=== PATIENT | female | born 1975 | race Caucasian/White ===

== ENCOUNTER → 2019-10-14 | Outpatient (CLI) | payer OTHER ==
[2019-10-14 18:48] LABS: Appearance, Urine Clear (Clear); Bilirubin, Urine Neg (Neg); Blood, Urine 3+ (Neg); Color, Urine Yellow (P-Yellow); Glucose Qualitative, Urine Neg (Neg); Ketones, Urine Neg (Neg); Leukocyte Esterase, Urine Neg (Neg); Nitrite, Urine Neg (Neg); Protein, Urine Neg (Neg); Urobilinogen, Urine NORM (Normal)
[2019-10-14 19:01] LABS: Bacteria Many /hpf; Mucus Light (0-Heavy); Red Blood Cells, Urine 0-2 /hpf (0-2); Squamous Epithelial Cells Mod /hpf (Few)
== END | disposition home or self-care (01) ==
LOC: LAB 17:03 → LAB SHORT 17:03
PROVIDERS: Nurse Practitioner Family
DX: R31.9 Hematuria, unspecified (principal)
CPT/HCPCS: 81001; 87086

== ENCOUNTER → 2020-12-28 | Outpatient (CLI) | payer OTHER ==
[2020-12-28 12:29] LABS: BASOPHILS ABSOLUTE AUTO 0.01 K/mm3 (0.00-0.23); BASOPHILS PERCENT AUTO 0 % (0-2); EOSINOPHILS ABSOLUTE AUTO 0.03 K/mm3 (0.00-0.68); EOSINOPHILS PERCENT AUTO 0 % (0-6); Hematocrit 42.8 % (33.0-51.0); Hemoglobin 14.3 g/dL (11.5-16.0); IMMATURE GRAN ABSOLUTE AUTO 0.04 K/mm3 (0.00-0.10); IMMATURE GRAN PERCENT AUTO 1 % (0-1); LYMPHOCYTES PERCENT AUTO 13 % (21-46); MONOCYTES ABSOLUTE AUTO 0.22 K/mm3 (0.16-1.47); MONOCYTES PERCENT AUTO 3 % (4-13); Mean Corpuscular HGB 31.1 pg (26.0-34.0); Mean Corpuscular HGB Conc 33.4 g/dL (31.5-36.5); Mean Corpuscular Volume 93 fL (80-100); Mean Platelet Volume 9.2 fL (9.1-12.4); NEUTROPHILS ABSOLUTE AUTO 6.21 K/mm3 (1.96-9.15); NEUTROPHILS PERCENT AUTO 83 % (41-73); Platelet Count 275 K/mm3 (150-400); RDW Coefficient Variation 14.3 % (11.7-14.2); RDW Standard Deviation 48.6 fL (35.1-46.3); White Blood Cell Count 7.51 K/mm3 (4.00-11.30)
[2020-12-28 12:39] LABS: Alanine Aminotransfer (ALT/SGP 25 U/L (12-78); Albumin, Blood 3.7 g/dL (3.4-5.0); Albumin/Globulin Ratio 0.8 (0.8-1.8); Alk Phos 59 U/L (40-126); Anion Gap 9 mmol/L (6-16); Aspartate Aminotrans (AST/SGOT 13 U/L (12-37); Bilirubin, Total 0.3 mg/dL (0.1-1.0); Blood Urea Nitrogen 14 mg/dL (8-24); Bun/Creatinine Ratio 14.3 (12.0-20.0); CO2, Blood 28 mmol/L (21-32); Calcium, Blood 10.3 mg/dL (8.5-10.1); Chloride, Blood 102 mmol/L (98-108); Creatinine, Blood 0.98 mg/dL (0.40-1.00); Globulin, Blood 4.6 g/dL (2.2-4.0); Glomerular Filtration Rate >60 (60-); Glucose, Blood 132 mg/dL (70-99); Potassium, Blood 4.5 mmol/L (3.5-5.5); Sodium, Blood 139 mmol/L (136-145); Total Protein, Blood 8.3 g/dL (6.4-8.2)
== END | disposition home or self-care (01) ==
LOC: LAB 12:23 → LAB SHORT 12:23
PROVIDERS: Chiropractor
DX: R04.2 Hemoptysis (principal)
CPT/HCPCS: 80053; 85025; 85379

== ENCOUNTER 2021-07-26 16:58 | Emergency (ER) | payer BC ==
[~2021-07-26] VITALS: Ht 177.8 cm; Wt 144.2 kg
[2021-07-26 18:36] LABS: BASOPHILS ABSOLUTE AUTO 0.03 K/mm3 (0.00-0.23); BASOPHILS PERCENT AUTO 1 % (0-2); EOSINOPHILS ABSOLUTE AUTO 0.13 K/mm3 (0.00-0.68); EOSINOPHILS PERCENT AUTO 2 % (0-6); Hematocrit 51.6 % (33.0-51.0); Hemoglobin 17.2 g/dL (11.5-16.0); IMMATURE GRAN ABSOLUTE AUTO 0.01 K/mm3 (0.00-0.10); IMMATURE GRAN PERCENT AUTO 0 % (0-1); LYMPHOCYTES ABSOLUTE AUTO 1.98 K/mm3 (0.84-5.20); LYMPHOCYTES PERCENT AUTO 34 % (21-46); MONOCYTES ABSOLUTE AUTO 0.36 K/mm3 (0.16-1.47); MONOCYTES PERCENT AUTO 6 % (4-13); Mean Corpuscular HGB Conc 33.3 g/dL (31.5-36.5); Mean Corpuscular Volume 90 fL (80-100); Mean Platelet Volume 9.1 fL (9.1-12.4); NEUTROPHILS ABSOLUTE AUTO 3.32 K/mm3 (1.96-9.15); NEUTROPHILS PERCENT AUTO 57 % (41-73); Platelet Count 187 K/mm3 (150-400); RDW Coefficient Variation 15.4 % (11.7-14.2); RDW Standard Deviation 49.1 fL (35.1-46.3); Red Blood Cell Count 5.73 M/mm3 (3.80-5.20); White Blood Cell Count 5.83 K/mm3 (4.00-11.30)
[2021-07-26 18:49] LABS: Alanine Aminotransfer (ALT/SGP 108 U/L (12-78); Albumin, Blood 3.7 g/dL (3.4-5.0); Albumin/Globulin Ratio 0.9 (0.8-1.8); Alk Phos 73 U/L (50-136); Anion Gap 2 mmol/L (6-16); Aspartate Aminotrans (AST/SGOT 79 U/L (12-37); Bilirubin, Total 0.7 mg/dL (0.1-1.0); Blood Urea Nitrogen 8 mg/dL (8-24); Bun/Creatinine Ratio 12.3 (12.0-20.0); CO2, Blood 33 mmol/L (21-32); Calcium, Blood 9.5 mg/dL (8.5-10.1); Chloride, Blood 101 mmol/L (98-108); Creatinine, Blood 0.65 mg/dL (0.40-1.00); Globulin, Blood 4.1 g/dL (2.2-4.0); Glomerular Filtration Rate >60 (60-); Glucose, Blood 93 mg/dL (70-99); Potassium, Blood 3.7 mmol/L (3.5-5.5); Sodium, Blood 136 mmol/L (136-145); Total Protein, Blood 7.8 g/dL (6.4-8.2)
[2021-07-26] MEDS ORDERED: Ativan1 MG PO (20:49)
[2021-07-26] MEDS ORDERED: MORPHINE SULFAT15 M1 PO (20:49)
== END 2021-07-26 20:50 | disposition home or self-care (01) ==
LOC: ER 16:58
PROVIDERS: Physician Assistant
DX: R03.0 Elevated blood-pressure reading, without diagnosis of hypertension (principal); Z79.899 Other long term (current) drug therapy; Z79.891 Long term (current) use of opiate analgesic; C64.9 Malignant neoplasm of unspecified kidney, except renal pelvis
CPT/HCPCS: 36415; 80053; 84484; 85025; 93005; 93010; 99283-25

== ENCOUNTER → 2021-09-01 | Outpatient (CLI) | payer BC ==
[~2021-09-01] MED LIST: Ativan1 MG PO; MORPHINE SULFAT15 M1 PO
[2021-09-01 14:44] LABS: BASOPHILS ABSOLUTE AUTO 0.06 K/mm3 (0.00-0.23); BASOPHILS PERCENT AUTO 1 % (0-2); EOSINOPHILS ABSOLUTE AUTO 0.82 K/mm3 (0.00-0.68); EOSINOPHILS PERCENT AUTO 11 % (0-6); Hematocrit 44.4 % (33.0-51.0); Hemoglobin 15.2 g/dL (11.5-16.0); IMMATURE GRAN ABSOLUTE AUTO 0.01 K/mm3 (0.00-0.10); IMMATURE GRAN PERCENT AUTO 0 % (0-1); LYMPHOCYTES ABSOLUTE AUTO 2.32 K/mm3 (0.84-5.20); LYMPHOCYTES PERCENT AUTO 30 % (21-46); MONOCYTES ABSOLUTE AUTO 0.63 K/mm3 (0.16-1.47); MONOCYTES PERCENT AUTO 8 % (4-13); Mean Corpuscular HGB 30.8 pg (26.0-34.0); Mean Corpuscular HGB Conc 34.2 g/dL (31.5-36.5); Mean Corpuscular Volume 90 fL (80-100); Mean Platelet Volume 9.7 fL (9.1-12.4); NEUTROPHILS ABSOLUTE AUTO 3.91 K/mm3 (1.96-9.15); NEUTROPHILS PERCENT AUTO 51 % (41-73); Platelet Count 260 K/mm3 (150-400); RDW Coefficient Variation 17.9 % (11.7-14.2); RDW Standard Deviation 58.5 fL (35.1-46.3); Red Blood Cell Count 4.94 M/mm3 (3.80-5.20); White Blood Cell Count 7.75 K/mm3 (4.00-11.30)
[2021-09-01 15:09] LABS: Albumin, Blood 3.7 g/dL (3.4-5.0); Calcium, Blood 9.7 mg/dL (8.5-10.1); Creatinine, Blood 1.5 mg/dL (0.40-1.00); Globulin, Blood 3.7 g/dL (2.2-4.0); Potassium, Blood 3.2 mmol/L (3.5-5.5); Total Protein, Blood 7.4 g/dL (6.4-8.2)
== END | disposition home or self-care (01) ==
LOC: LAB SHORT 14:00
PROVIDERS: Registered Nurse Oncology
DX: C64.2 Malignant neoplasm of left kidney, except renal pelvis (principal); C78.00 Secondary malignant neoplasm of unspecified lung
CPT/HCPCS: 80053; 85025

== ENCOUNTER → 2021-10-21 | Outpatient (CLI) | payer BC ==
[2021-10-21 17:25] LABS: Bun/Creatinine Ratio 8.3 (12.0-20.0); Calcium, Blood 8.5 mg/dL (8.5-10.1); Creatinine, Blood 0.84 mg/dL (0.40-1.00); Magnesium, Blood 1.5 mg/dL (1.6-2.4); Potassium, Blood 3.9 mmol/L (3.5-5.5)
== END | disposition home or self-care (01) ==
LOC: LAB 17:16 → LAB SHORT 17:16
PROVIDERS: Chiropractor
DX: E87.6 Hypokalemia (principal)
CPT/HCPCS: 80048; 83735

== ENCOUNTER 2022-05-17 15:09 | Emergency (ER) | payer OTHER ==
[~2022-05-17] VITALS: Ht 180.3 cm; Wt 117.9 kg
[2022-05-17] MEDS ORDERED: DIPATR (15:31)
[2022-05-17] MEDS ORDERED: Lisinopril2.5 MG (15:31)
[2022-05-17] MEDS ORDERED: CABOMETYX20 MG (15:32)
[2022-05-17] MEDS ORDERED: FENT200LOZ (15:32)
[2022-05-17] MEDS ORDERED: CARV3.125 (15:33)
[2022-05-17] MEDS ORDERED: SERT25 (15:33)
[2022-05-17] MEDS ORDERED: OLAN2.5 (15:34)
[2022-05-17] MEDS ORDERED: Amlodipine Bes2.5 MG (15:34)
[2022-05-17 15:45] LABS: BASOPHILS ABSOLUTE AUTO 0.04 K/mm3 (0.00-0.23); BASOPHILS PERCENT AUTO 0 % (0-2); EOSINOPHILS ABSOLUTE AUTO 0.28 K/mm3 (0.00-0.68); EOSINOPHILS PERCENT AUTO 3 % (0-6); Hematocrit 47.7 % (33.0-51.0); Hemoglobin 16.1 g/dL (11.5-16.0); IMMATURE GRAN ABSOLUTE AUTO 0.02 K/mm3 (0.00-0.10); IMMATURE GRAN PERCENT AUTO 0 % (0-1); LYMPHOCYTES ABSOLUTE AUTO 1.86 K/mm3 (0.84-5.20); LYMPHOCYTES PERCENT AUTO 19 % (21-46); MONOCYTES ABSOLUTE AUTO 0.53 K/mm3 (0.16-1.47); MONOCYTES PERCENT AUTO 5 % (4-13); Mean Corpuscular HGB Conc 33.8 g/dL (31.5-36.5); Mean Corpuscular Volume 104 fL (80-100); Mean Platelet Volume 10.1 fL (9.1-12.4); NEUTROPHILS ABSOLUTE AUTO 7.09 K/mm3 (1.96-9.15); NEUTROPHILS PERCENT AUTO 72 % (41-73); Platelet Count 282 K/mm3 (150-400); RDW Coefficient Variation 14.8 % (11.7-14.2); RDW Standard Deviation 57.1 fL (35.1-46.3); White Blood Cell Count 9.82 K/mm3 (4.00-11.30)
[2022-05-17 16:08] LABS: Albumin, Blood 3.4 g/dL (3.4-5.0); Albumin/Globulin Ratio 0.8 (0.8-1.8); Bilirubin, Total 0.5 mg/dL (0.1-1.0); Bun/Creatinine Ratio 13.9 (12.0-20.0); Calcium, Blood 8.4 mg/dL (8.5-10.1); Creatinine, Blood 1.44 mg/dL (0.40-1.00); Globulin, Blood 4.2 g/dL (2.2-4.0); Magnesium, Blood 1.3 mg/dL (1.6-2.4); Potassium, Blood 3.3 mmol/L (3.5-5.5); Total Protein, Blood 7.6 g/dL (6.4-8.2)
== END 2022-05-17 17:49 | disposition home or self-care (01) ==
LOC: ER 15:09
PROVIDERS: Physician Assistant
DX: N17.9 Acute kidney failure, unspecified (principal); E86.0 Dehydration; E87.6 Hypokalemia; E83.42 Hypomagnesemia; I95.9 Hypotension, unspecified; F17.200 Nicotine dependence, unspecified, uncomplicated; Z79.899 Other long term (current) drug therapy
CPT/HCPCS: 36415; 71046; 80053; 83735; 84484; 85025; 93005; 93010; 96361; 96365; 99284-25; A9270; J3475; J7030

== ENCOUNTER 2022-08-10 14:15 | Emergency (ER) | payer OTHER ==
[~2022-08-10] VITALS: Ht 177.8 cm; Wt 113.4 kg
[~2022-08-10 14:15] MED LIST changes: +Amlodipine Bes2.5 MG; +CABOMETYX20 MG; +CARV3.125; +DIPATR; +FENT200LOZ; +Lisinopril2.5 MG; +OLAN2.5; +SERT25
[2022-08-10 14:49] VITALS: BP 101/68
[2022-08-10 15:13] LABS: BASOPHILS ABSOLUTE AUTO 0.03 K/mm3 (0.00-0.23); BASOPHILS PERCENT AUTO 0 % (0-2); EOSINOPHILS ABSOLUTE AUTO 0.34 K/mm3 (0.00-0.68); EOSINOPHILS PERCENT AUTO 4 % (0-6); Hematocrit 43.7 % (33.0-51.0); Hemoglobin 14.6 g/dL (11.5-16.0); IMMATURE GRAN ABSOLUTE AUTO 0.01 K/mm3 (0.00-0.10); IMMATURE GRAN PERCENT AUTO 0 % (0-1); LYMPHOCYTES ABSOLUTE AUTO 2.05 K/mm3 (0.84-5.20); LYMPHOCYTES PERCENT AUTO 24 % (21-46); MONOCYTES ABSOLUTE AUTO 0.48 K/mm3 (0.16-1.47); MONOCYTES PERCENT AUTO 6 % (4-13); Mean Corpuscular HGB 34.4 pg (26.0-34.0); Mean Corpuscular HGB Conc 33.4 g/dL (31.5-36.5); Mean Corpuscular Volume 103 fL (80-100); Mean Platelet Volume 9.9 fL (9.1-12.4); NEUTROPHILS ABSOLUTE AUTO 5.64 K/mm3 (1.96-9.15); NEUTROPHILS PERCENT AUTO 66 % (41-73); Platelet Count 189 K/mm3 (150-400); RDW Coefficient Variation 14.8 % (11.7-14.2); RDW Standard Deviation 56.8 fL (35.1-46.3); Red Blood Cell Count 4.24 M/mm3 (3.80-5.20); White Blood Cell Count 8.55 K/mm3 (4.00-11.30)
[2022-08-10 15:32] LABS: Albumin, Blood 3.2 g/dL (3.4-5.0); Albumin/Globulin Ratio 0.8 (0.8-1.8); Bilirubin, Total 0.5 mg/dL (0.1-1.0); Bun/Creatinine Ratio 14.6 (12.0-20.0); Calcium, Blood 7.3 mg/dL (8.5-10.1); Creatinine, Blood 0.82 mg/dL (0.40-1.00); Globulin, Blood 3.8 g/dL (2.2-4.0); Potassium, Blood 3.7 mmol/L (3.5-5.5)
[2022-08-10 18:30] LABS: Source, Urine Clean Catch
[2022-08-10 18:33] LABS: Appearance, Urine Hazy (Clear); Blood, Urine 3+ (Neg); Color, Urine Amber (P-Yellow); Glucose Qualitative, Urine 1+ (Neg); Ketones, Urine 1+ (Neg); Leukocyte Esterase, Urine 2+ (Neg); Nitrite, Urine Pos (Neg); Protein, Urine 4+ (Neg); Urobilinogen, Urine 2+ (Normal)
[2022-08-10 18:52] LABS: Bilirubin, Urine 2+ (Neg)
[2022-08-10 18:55] LABS: Bacteria Many /hpf; Granular Casts 0-2 /lpf (0); Squamous Epithelial Cells Many /hpf (Few)
[2022-08-10] MEDS ORDERED: Macrobid 100 M100 MG PO (19:34)
== END 2022-08-10 19:40 | disposition home or self-care (01) ==
LOC: ER 14:15
PROVIDERS: Physician Assistant
DX: N39.0 Urinary tract infection, site not specified (principal); E86.0 Dehydration; I10 Essential (primary) hypertension; Z79.899 Other long term (current) drug therapy
CPT/HCPCS: 80053; 81001; 85025; 87086; 99284; J7030

== ENCOUNTER 2023-04-16 08:00 | Day surgery (SDC) | payer OTHER ==
[~2023-04-16 08:00] MED LIST changes: +Macrobid 100 M100 MG PO
== END 2023-04-16 23:59 | disposition home or self-care (01) ==
LOC: WOUND 08:00
DX: T81.31XS Disruption of external operation (surgical) wound, not elsewhere classified, sequela (principal); S30.811D Abrasion of abdominal wall, subsequent encounter; I10 Essential (primary) hypertension; F17.290 Nicotine dependence, other tobacco product, uncomplicated; Z92.21 Personal history of antineoplastic chemotherapy; Y83.8 Other surgical procedures as the cause of abnormal reaction of the patient, or of later complication, without mention of misadventure at the time of the procedure; X58.XXXD Exposure to other specified factors, subsequent encounter
CPT/HCPCS: 99406; A9270; G0463

== ENCOUNTER 2023-04-23 03:42 | Day surgery (SDC) | payer OTHER | END 2023-04-23 22:54 | disposition home or self-care (01) | LOC: WOUND 03:42 | DX: S31.104A Unspecified open wound of abdominal wall, left lower quadrant without penetration into peritoneal cavity, initial encounter (principal); S30.811A Abrasion of abdominal wall, initial encounter; X58.XXXA Exposure to other specified factors, initial encounter; T81.31XS Disruption of external operation (surgical) wound, not elsewhere classified, sequela; Y83.8 Other surgical procedures as the cause of abnormal reaction of the patient, or of later complication, without mention of misadventure at the time of the procedure; I10 Essential (primary) hypertension; Z92.21 Personal history of antineoplastic chemotherapy | CPT/HCPCS: A9270 ==

== ENCOUNTER 2023-05-02 03:00 | Day surgery (SDC) | payer OTHER | END 2023-05-02 22:49 | disposition home or self-care (01) | LOC: WOUND 03:00 | DX: T81.31XS Disruption of external operation (surgical) wound, not elsewhere classified, sequela (principal); I10 Essential (primary) hypertension; S30.811D Abrasion of abdominal wall, subsequent encounter; S30.810D Abrasion of lower back and pelvis, subsequent encounter; C64.9 Malignant neoplasm of unspecified kidney, except renal pelvis; Z92.21 Personal history of antineoplastic chemotherapy; Y83.8 Other surgical procedures as the cause of abnormal reaction of the patient, or of later complication, without mention of misadventure at the time of the procedure; X58.XXXD Exposure to other specified factors, subsequent encounter | CPT/HCPCS: 36415; 80053; 84443; 85025; A9270 ==

== ENCOUNTER 2023-05-18 00:38 | Day surgery (SDC) | payer OTHER ==
[2023-05-18] MEDS ORDERED: Lidocaine HCl 4% Cream 5 GM ONE (13:57)
== END 2023-05-18 22:40 | disposition home or self-care (01) ==
LOC: WOUND 00:38
DX: T81.31XS Disruption of external operation (surgical) wound, not elsewhere classified, sequela (principal); S30.811D Abrasion of abdominal wall, subsequent encounter; S30.810D Abrasion of lower back and pelvis, subsequent encounter; I10 Essential (primary) hypertension; C64.9 Malignant neoplasm of unspecified kidney, except renal pelvis; Z92.21 Personal history of antineoplastic chemotherapy; X58.XXXD Exposure to other specified factors, subsequent encounter; Y83.8 Other surgical procedures as the cause of abnormal reaction of the patient, or of later complication, without mention of misadventure at the time of the procedure
CPT/HCPCS: A9270

== ENCOUNTER 2023-05-25 01:45 | Day surgery (SDC) | payer OTHER ==
[2023-05-25] MEDS ORDERED: Lidocaine HCl 4% Cream 5 GM ONE (12:08)
[2023-05-25] MEDS ORDERED: Triamcinolone Acet 0.1% Cream 15 gm ONE (12:32)
== END 2023-05-25 22:52 | disposition home or self-care (01) ==
LOC: WOUND 01:45
DX: T81.31XD Disruption of external operation (surgical) wound, not elsewhere classified, subsequent encounter (principal); I10 Essential (primary) hypertension; Z92.21 Personal history of antineoplastic chemotherapy; S30.811D Abrasion of abdominal wall, subsequent encounter
CPT/HCPCS: A9270; G0463

== ENCOUNTER 2023-06-06 02:52 | Day surgery (SDC) | payer OTHER | END 2023-06-06 22:48 | disposition home or self-care (01) | LOC: WOUND 02:52 | DX: T81.31XD Disruption of external operation (surgical) wound, not elsewhere classified, subsequent encounter (principal); I10 Essential (primary) hypertension; C64.2 Malignant neoplasm of left kidney, except renal pelvis; C79.9 Secondary malignant neoplasm of unspecified site; Z79.899 Other long term (current) drug therapy; Z90.5 Acquired absence of kidney | CPT/HCPCS: G0463 ==

== ENCOUNTER 2023-07-19 02:36 | Day surgery (SDC) | payer MEDICARE, OTHER ==
[2023-07-19] MEDS ORDERED: Triamcinolone Acet 0.1% Cream 15 gm ONE (15:03)
== END 2023-07-19 22:53 | disposition home or self-care (01) ==
LOC: WOUND 02:36
DX: L98.491 Non-pressure chronic ulcer of skin of other sites limited to breakdown of skin (principal); S30.811D Abrasion of abdominal wall, subsequent encounter; T81.31XS Disruption of external operation (surgical) wound, not elsewhere classified, sequela; I10 Essential (primary) hypertension; Z85.528 Personal history of other malignant neoplasm of kidney; Z90.5 Acquired absence of kidney; Z79.899 Other long term (current) drug therapy; Z92.21 Personal history of antineoplastic chemotherapy
CPT/HCPCS: A6213; A9270; G0463

== ENCOUNTER 2023-07-26 02:16 | Day surgery (SDC) | payer MEDICARE, OTHER ==
[2023-07-26] MEDS ORDERED: Lidocaine HCl 4% Cream 5 GM ONE (15:17)
[2023-07-26] MEDS ORDERED: Triamcinolone Acet 0.1% Cream 15 gm ONE (15:17)
== END 2023-07-26 23:15 | disposition home or self-care (01) ==
LOC: WOUND 02:16
DX: T81.31XS Disruption of external operation (surgical) wound, not elsewhere classified, sequela (principal); C79.00 Secondary malignant neoplasm of unspecified kidney and renal pelvis; S30.811D Abrasion of abdominal wall, subsequent encounter; X58.XXXD Exposure to other specified factors, subsequent encounter; L98.491 Non-pressure chronic ulcer of skin of other sites limited to breakdown of skin; I10 Essential (primary) hypertension; Z92.21 Personal history of antineoplastic chemotherapy
CPT/HCPCS: A9270; G0463

== ENCOUNTER 2023-08-09 02:50 | Day surgery (SDC) | payer MEDICARE, OTHER | END 2023-08-09 22:36 | disposition home or self-care (01) | LOC: WOUND 02:50 | DX: L53.9 Erythematous condition, unspecified (principal); T81.31XS Disruption of external operation (surgical) wound, not elsewhere classified, sequela; C64.9 Malignant neoplasm of unspecified kidney, except renal pelvis; I10 Essential (primary) hypertension; L98.491 Non-pressure chronic ulcer of skin of other sites limited to breakdown of skin; S30.811D Abrasion of abdominal wall, subsequent encounter; Y83.8 Other surgical procedures as the cause of abnormal reaction of the patient, or of later complication, without mention of misadventure at the time of the procedure; Z90.5 Acquired absence of kidney; Z92.21 Personal history of antineoplastic chemotherapy | CPT/HCPCS: G0463 ==

== ENCOUNTER 2023-08-30 06:12 | Day surgery (SDC) | payer MEDICARE, OTHER | END 2023-08-30 23:23 | disposition home or self-care (01) | LOC: WOUND 06:12 | DX: T81.31XA Disruption of external operation (surgical) wound, not elsewhere classified, initial encounter (principal); L98.492 Non-pressure chronic ulcer of skin of other sites with fat layer exposed; S30.811D Abrasion of abdominal wall, subsequent encounter; X58.XXXD Exposure to other specified factors, subsequent encounter; I10 Essential (primary) hypertension; Z92.21 Personal history of antineoplastic chemotherapy | CPT/HCPCS: G0463 ==

== ENCOUNTER 2023-10-04 03:36 | Day surgery (SDC) | payer MEDICARE, OTHER | END 2023-10-04 22:43 | disposition home or self-care (01) | LOC: WOUND 03:36 | DX: L98.492 Non-pressure chronic ulcer of skin of other sites with fat layer exposed (principal); T81.31XA Disruption of external operation (surgical) wound, not elsewhere classified, initial encounter; S30.811D Abrasion of abdominal wall, subsequent encounter; X58.XXXD Exposure to other specified factors, subsequent encounter; I10 Essential (primary) hypertension; Z92.21 Personal history of antineoplastic chemotherapy | CPT/HCPCS: G0463 ==

== ENCOUNTER 2023-10-25 02:38 | Day surgery (SDC) | payer MEDICARE, OTHER | END 2023-10-25 22:47 | disposition home or self-care (01) | LOC: WOUND 02:38 | DX: T81.31XD Disruption of external operation (surgical) wound, not elsewhere classified, subsequent encounter (principal); I10 Essential (primary) hypertension; L98.491 Non-pressure chronic ulcer of skin of other sites limited to breakdown of skin; S30.811D Abrasion of abdominal wall, subsequent encounter; Z92.21 Personal history of antineoplastic chemotherapy; X58.XXXD Exposure to other specified factors, subsequent encounter; Y83.8 Other surgical procedures as the cause of abnormal reaction of the patient, or of later complication, without mention of misadventure at the time of the procedure | CPT/HCPCS: G0463 ==

== ENCOUNTER 2023-11-06 02:00 | Day surgery (SDC) | payer MEDICARE, OTHER | END 2023-11-06 23:10 | disposition home or self-care (01) | LOC: WOUND 02:00 | DX: T81.31XD Disruption of external operation (surgical) wound, not elsewhere classified, subsequent encounter (principal); I10 Essential (primary) hypertension; S30.811D Abrasion of abdominal wall, subsequent encounter; Z92.21 Personal history of antineoplastic chemotherapy; Y83.8 Other surgical procedures as the cause of abnormal reaction of the patient, or of later complication, without mention of misadventure at the time of the procedure | CPT/HCPCS: A6213; G0463 ==

== ENCOUNTER 2023-12-14 01:50 | Day surgery (SDC) | payer MEDICARE, OTHER | END 2023-12-14 23:19 | disposition home or self-care (01) | LOC: WOUND 01:50 | DX: T81.31XA Disruption of external operation (surgical) wound, not elsewhere classified, initial encounter (principal); S30.811A Abrasion of abdominal wall, initial encounter; L98.491 Non-pressure chronic ulcer of skin of other sites limited to breakdown of skin; I10 Essential (primary) hypertension; Z92.21 Personal history of antineoplastic chemotherapy; X58.XXXA Exposure to other specified factors, initial encounter | CPT/HCPCS: G0463 ==

== ENCOUNTER 2023-12-28 04:39 | Day surgery (SDC) | payer MEDICARE, OTHER | END 2023-12-29 01:31 | disposition home or self-care (01) | LOC: WOUND 04:39 | DX: L98.491 Non-pressure chronic ulcer of skin of other sites limited to breakdown of skin (principal); I10 Essential (primary) hypertension; S30.811D Abrasion of abdominal wall, subsequent encounter; T81.31XS Disruption of external operation (surgical) wound, not elsewhere classified, sequela; X58.XXXD Exposure to other specified factors, subsequent encounter; Y83.8 Other surgical procedures as the cause of abnormal reaction of the patient, or of later complication, without mention of misadventure at the time of the procedure; Z92.21 Personal history of antineoplastic chemotherapy | CPT/HCPCS: G0463 ==

== ENCOUNTER 2024-01-11 01:18 | Day surgery (SDC) | payer MEDICARE, OTHER | END 2024-01-12 02:51 | disposition home or self-care (01) | LOC: WOUND 01:18 | DX: T81.31XS Disruption of external operation (surgical) wound, not elsewhere classified, sequela (principal); I10 Essential (primary) hypertension; Z85.528 Personal history of other malignant neoplasm of kidney; Z90.5 Acquired absence of kidney | CPT/HCPCS: G0463 ==

== ENCOUNTER 2024-01-19 18:03 | Emergency (ER) | payer MEDICARE, OTHER ==
[~2024-01-19] VITALS: Ht 177.8 cm; Wt 130.2 kg
[2024-01-19 19:11] LABS: BASOPHILS ABSOLUTE AUTO 0.03 K/mm3 (0.00-0.23); BASOPHILS PERCENT AUTO 1 % (0-2); EOSINOPHILS ABSOLUTE AUTO 0.28 K/mm3 (0.00-0.68); EOSINOPHILS PERCENT AUTO 5 % (0-6); Hematocrit 37.7 % (33.0-51.0); Hemoglobin 12.4 g/dL (11.5-16.0); IMMATURE GRAN ABSOLUTE AUTO 0.02 K/mm3 (0.00-0.10); IMMATURE GRAN PERCENT AUTO 0 % (0-1); LYMPHOCYTES ABSOLUTE AUTO 1.56 K/mm3 (0.84-5.20); LYMPHOCYTES PERCENT AUTO 30 % (21-46); MONOCYTES ABSOLUTE AUTO 0.46 K/mm3 (0.16-1.47); MONOCYTES PERCENT AUTO 9 % (4-13); Mean Corpuscular HGB 34.6 pg (26.0-34.0); Mean Corpuscular HGB Conc 32.9 g/dL (31.5-36.5); Mean Corpuscular Volume 105 fL (80-100); Mean Platelet Volume 9.5 fL (9.1-12.4); NEUTROPHILS PERCENT AUTO 55 % (41-73); Platelet Count 193 K/mm3 (150-400); RDW Coefficient Variation 13.4 % (11.7-14.2); Red Blood Cell Count 3.58 M/mm3 (3.80-5.20); White Blood Cell Count 5.25 K/mm3 (4.00-11.30)
[2024-01-19 19:32] LABS: Albumin, Blood 3.3 g/dL (3.4-5.0); Albumin/Globulin Ratio 0.9 (0.8-1.8); Bilirubin, Total 0.5 mg/dL (0.1-1.0); Bun/Creatinine Ratio 13.3 (12.0-20.0); Calcium, Blood 9.3 mg/dL (8.5-10.1); Creatinine, Blood 1.28 mg/dL (0.40-1.00); Globulin, Blood 3.7 g/dL (2.2-4.0); Potassium, Blood 4.5 mmol/L (3.5-5.5)
[2024-01-19] MEDS ORDERED: HYDROmorphone HCl/Pf 1MG SYR IV ONE ×2 (20:40→22:55)
[2024-01-19] MEDS ORDERED: Ondansetron HCl 2 MG / ML 2ML Vial IV ONE (20:40)
[2024-01-19] MEDS ORDERED: Ipratropium Bromide INH 0.02% 0.5 mg/2.5ML Vial INH SCH (20:55)
[2024-01-19] MEDS ORDERED: Albuterol 2.5 MG/3 ML VIAL INH SCH (20:55)
[2024-01-19] MEDS ORDERED: OLANZAPINE5 M1 PO (22:46)
[2024-01-19] MEDS ORDERED: CARVEDILOL12.5 MG PO (22:46)
[2024-01-19] MEDS ORDERED: ZOLOFT10013 PO (22:46)
[2024-01-19] MEDS ORDERED: AMLODIPINE BESY10 MG PO (22:47)
[2024-01-19] MEDS ORDERED: K-Dur10 MEQ (22:47)
[2024-01-19] MEDS ORDERED: CABOMETYX40 MG PO (22:47)
[2024-01-19] MEDS ORDERED: EUTHYROX100 MC1 PO (22:47)
[2024-01-19] MEDS ORDERED: DURAGESIC1 EAC1 TOP (22:47)
[2024-01-19] MEDS ORDERED: LISI20 PO (22:48)
[2024-01-20] MEDS ORDERED: HYDROmorphone HCl/Pf 1MG SYR ONE (00:15)
[2024-01-20] MEDS ORDERED: HYDROmorphone HCl/Pf 1MG SYR IV ONE (00:20)
[2024-01-20] MEDS ORDERED: Cefepime HCl 2,000 MG in NS 100 ML IV ONE (00:35)
[2024-01-20] MEDS ORDERED: VANCOMYCIN HCL IV SCH (00:35)
[2024-01-20] MEDS ORDERED: Vancomycin HCL 2,500 MG in NS 500 ML IV ONE (01:35)
[2024-01-20] MEDS ORDERED: OxyCODONE 10/Acetamin 325 TABLET PO ONE (01:50)
[2024-01-20 04:30] VITALS: BP 122/78
== END 2024-01-20 05:02 | disposition short-term general hospital (02) ==
LOC: ER 18:03
PROVIDERS: Emergency Medicine
DX: L98.499 Non-pressure chronic ulcer of skin of other sites with unspecified severity (principal); L02.211 Cutaneous abscess of abdominal wall; Z79.899 Other long term (current) drug therapy; I10 Essential (primary) hypertension
CPT/HCPCS: 71046; 74177; 80053; 85025; 94644; 94664; 96365; 96366; 96367; 96375; 96376; 99285-25; A9270; J0692; J1170; J1171; J2405; J3370; J7040; Q9967

== ENCOUNTER → 2024-04-28 | Outpatient (CLI) | payer MEDICARE, OTHER ==
[~2024-04-28] MED LIST changes: +AMLODIPINE BESY10 MG PO; +CABOMETYX40 MG PO; +CARVEDILOL12.5 MG PO; +DURAGESIC1 EAC1 TOP; +EUTHYROX100 MC1 PO; +K-Dur10 MEQ; +LISI20 PO; +OLANZAPINE5 M1 PO; +ZOLOFT10013 PO
== END ==
LOC: LAB SHORT 18:57 → LAB 18:57
DX: R39.9 Unspecified symptoms and signs involving the genitourinary system (principal)
CPT/HCPCS: 87077; 87086; 87147; 87186

== ENCOUNTER → 2024-05-27 | Outpatient (CLI) | payer MEDICARE, OTHER ==
[2024-05-27 18:13] LABS: Bacteria Many /hpf; Red Blood Cells, Urine TNTC /hpf (0-2); Squamous Epithelial Cells Mod /hpf (Few); White Blood Cells, Urine TNTC /hpf (0-5)
== END ==
LOC: LAB 16:32 → LAB SHORT 16:32
PROVIDERS: Family Medicine
DX: N39.0 Urinary tract infection, site not specified (principal)
CPT/HCPCS: 81015; 87077; 87086; 87147; 87186

== ENCOUNTER → 2024-06-30 | Outpatient (CLI) | payer MEDICARE, OTHER | LOC: LAB SHORT 14:16 → LAB 14:16 | DX: R53.82 Chronic fatigue, unspecified (principal); Z79.899 Other long term (current) drug therapy | CPT/HCPCS: 82306; 82607; 82746 ==

== ENCOUNTER 2024-08-24 11:00 | Emergency (ER) | payer MEDICARE, OTHER ==
[~2024-08-24] VITALS: Ht 177.8 cm; Wt 136.1 kg
[2024-08-24 11:36] LABS: BASOPHILS ABSOLUTE AUTO 0.02 K/mm3 (0.00-0.23); BASOPHILS PERCENT AUTO 0 % (0-2); EOSINOPHILS ABSOLUTE AUTO 0.01 K/mm3 (0.00-0.68); EOSINOPHILS PERCENT AUTO 0 % (0-6); Hematocrit 40.4 % (33.0-51.0); Hemoglobin 13.6 g/dL (11.5-16.0); IMMATURE GRAN ABSOLUTE AUTO 0.08 K/mm3 (0.00-0.10); IMMATURE GRAN PERCENT AUTO 2 % (0-1); LYMPHOCYTES ABSOLUTE AUTO 1.88 K/mm3 (0.84-5.20); LYMPHOCYTES PERCENT AUTO 35 % (21-46); MONOCYTES ABSOLUTE AUTO 0.34 K/mm3 (0.16-1.47); MONOCYTES PERCENT AUTO 6 % (4-13); Mean Corpuscular HGB 29.8 pg (26.0-34.0); Mean Corpuscular HGB Conc 33.7 g/dL (31.5-36.5); Mean Corpuscular Volume 89 fL (80-100); Mean Platelet Volume 9.1 fL (9.1-12.4); NEUTROPHILS ABSOLUTE AUTO 3.01 K/mm3 (1.96-9.15); NEUTROPHILS PERCENT AUTO 56 % (41-73); NRBC ABSOLUTE 0.02 K/mm3 (0.00-0.02); NRBC Auto 0.4 /100 WBC (0.0-0.2); Platelet Count 111 K/mm3 (150-400); RDW Coefficient Variation 16.7 % (11.7-14.2); RDW Standard Deviation 53.7 fL (35.1-46.3); Red Blood Cell Count 4.56 M/mm3 (3.80-5.20); White Blood Cell Count 5.34 K/mm3 (4.00-11.30)
[2024-08-24 11:53] LABS: Albumin/Globulin Ratio 0.8 (0.8-1.8); Bilirubin, Total 0.6 mg/dL (0.1-1.0); Bun/Creatinine Ratio 20.5 (12.0-20.0); Calcium, Blood 8.6 mg/dL (8.5-10.1); Creatinine, Blood 0.88 mg/dL (0.40-1.00); Globulin, Blood 3.7 g/dL (2.2-4.0); Potassium, Blood 3.8 mmol/L (3.5-5.5); Total Protein, Blood 6.7 g/dL (6.4-8.2)
[2024-08-24 13:12] VITALS: BP 121/85
== END 2024-08-24 14:04 | disposition home or self-care (01) ==
LOC: ER 11:00
PROVIDERS: Emergency Medicine
DX: I10 Essential (primary) hypertension (principal); C64.9 Malignant neoplasm of unspecified kidney, except renal pelvis; Z79.60 Long term (current) use of unspecified immunomodulators and immunosuppressants; Z79.899 Other long term (current) drug therapy
CPT/HCPCS: 80053; 84484; 85025; 93005; 93010; 99283-25